=== PATIENT | female | born 1930 | race Caucasian/White ===

== ENCOUNTER 2018-10-13 02:02 | Inpatient (IN) | payer MEDICARE ==
[2018-10-13] MEDS ORDERED: Fentanyl 100 MCG/2 ML VIAL ONE (02:17)
[2018-10-13] MEDS ORDERED: Ondansetron PF 4 MG/2 ML Vial ONE (03:07)
[2018-10-13] MEDS ORDERED: Morphine 4 MG/ML VIAL ONE (03:07)
[2018-10-13 03:23] LABS: #Lymphocytes 2.4 thou/uL (1.20-3.40); #Monocytes 0.5 thou/uL (0.11-0.59); #Neutrophils 9.2 thou/uL (1.40-6.50); %Basophils 0.3 % (0.0-1.0); %Eosinophils 0.3 % (0.0-10.0); %Lymphocytes 19.3 % (21.0-51.0); %Monocytes 4.4 % (0.0-10.0); %Neutrophils 75.7 % (42.0-75.0); Hemoglobin 11.8 g/dL (12.0-16.0); Mean Corpuscular HGB CONC 32.7 g/dL (32.0-36.0); Mean Corpuscular Hemoglobin 30.6 pg (27.0-31.0); Mean Corpuscular Volume 93.3 fL (78.0-98.0); Mean Platelet Volume 7.6 fL (7.4-10.4); Platelet Count 250 thou/uL (130-400); RBC Distribution Width 13.3 % (11.5-14.5); Red Blood Cell (RBC) Count 3.87 mill/uL (4.20-5.40); White Blood Cell (WBC) Count 12.2 thou/uL (4.8-10.8)
[2018-10-13 03:29] LABS: INR-International Normal Ratio 1.4; Prothrombin Time 17.2 SEC (12.0-14.7)
[2018-10-13 03:30] LABS: PTT 36.4 SEC (22.9-36.1)
[2018-10-13 03:44] LABS: ALT (SGPT) 9 U/L (8-55); AST (SGOT) 15 U/L (5-34); Albumin 3.7 g/dL (3.4-4.8); Alkaline Phosphatase 111 U/L (40-150); Anion Gap 15 mmol/L (10-20); BUN (Urea Nitrogen) 19 mg/dL (9.8-20.1); Bilirubin, Total 0.4 mg/dL (0.2-1.2); CK (CPK) 45 U/L (29-168); Calc. Creatinine Clearance 0 mL/min (70-130); Calcium 9.1 mg/dL (7.8-10.44); Carbon Dioxide 19 mmol/L (23-31); Chloride 105 mmol/L (98-107); Estimated GFR-MDRD 42; Globulin 3.8 g/dL (2.4-3.5); Glucose 138 mg/dL (83-110); Potassium 3.3 mmol/L (3.5-5.1); Protein, Total 7.5 g/dL (6.0-8.3); Sodium 136 mmol/L (136-145)
[2018-10-13] MEDS ORDERED: Dextrose 50% Abboject 50 ML SYRINGE SLOW IVP PRN (05:45)
[2018-10-13] MEDS ORDERED: Morphine 2 MG/ML SYRINGE SLOW IVP PRN (05:45)
[2018-10-13] MEDS ORDERED: Ondansetron ODT 4 MG TAB PO PRN (05:45)
[2018-10-13] MEDS ORDERED: Dextrose 5% in Water 1,000 ML IV PRN (05:45)
[2018-10-13] MEDS ORDERED: Ondansetron PF 4 MG/2 ML Vial IVP PRN (05:45)
[2018-10-13 05:53] VITALS: BMI 28.3
--- NOTE | 2018-10-13 05:54 | HP ---
ATTENDING SURGEON: Eros Darnell MD CONSULTATIONS: Orthopedics, Gonzalo Akins MD HISTORY OF PRESENT ILLNESS: Patient is an 88-year-old woman who resides at home in independent living facility with her , who reportedly tripped over the carpet. After about an hour and a half to 2 hours, she was able to summon help and was brought to the emergency department and underwent evaluation and examination. She was noted to have a right nondisplaced hip fracture, at which time, we were asked to evaluate the patient for admission and obtain orthopedic consultation. The patient denies loss of consciousness or any syncopal type symptoms prior to her fall. ALLERGIES: NONE. CURRENT MEDICATIONS: 1. Eliquis. 2. Fexofenadine. 3. Fluticasone. 4. Furosemide. 5. Levothyroxine. 6. Mirapex. PAST MEDICAL HISTORY: Chronic kidney disease, hypothyroid, hypertension, atrial fibrillation. PAST SURGICAL HISTORY: Appendectomy, colonoscopy, and colon surgery. SOCIAL HISTORY: The patient lives independently at home with spouse. She denies drug, tobacco, or alcohol use. REVIEW OF SYSTEMS: A 10-point review of systems is negative as otherwise stated. PHYSICAL EXAMINATION: VITAL SIGNS: Blood pressure 155/97, heart rate 84, respirations 18, temperature is 97.6, oxygen saturation is 96% on room air. GENERAL: The patient is resting comfortably in bed. She is awake, alert, oriented x3. [place] Coma Scale is 15. HEENT: Head is normocephalic, atraumatic. Eyes; extraocular motion intact. PERRLA bilaterally. Ears are atraumatic without discharge. Nose; atraumatic without discharge. Oropharynx is clear. NECK: Nontender. Trachea is midline. No JVD. CHEST: Clear to auscultation with good inspiratory and expiratory effort. HEART: Regular rate and rhythm. ABDOMEN: Soft, flat, nontender with active bowel sounds. PELVIS: Stable with tenderness to palpation to the right hip consistent with her fracture. EXTREMITIES: Neurovascularly intact x4. Capillary refill is less than 3 seconds. Pulses are 2+. BACK: By report is nontender and atraumatic. LABORATORY RESULTS: White blood cell count 12.2, hemoglobin 11.8, hematocrit 36.1, platelets 250. Sodium 136, potassium 3.3, chloride 105, CO2 of 19, BUN 19, creatinine 1.21, glucose 138. LFTs are unremarkable. PTT 36, PT 17, INR 1.4. CK is 45. RADIOGRAPHIC REPORTS: CT of the brain without contrast shows no acute findings. AP chest x-ray shows no acute cardiopulmonary findings. AP pelvis shows a nondisplaced intertrochanteric femur fracture of the right femur. Radiographs of the right tibia and fibula is showing no acute findings. Views of the right femur did show fracture of the right intertrochanteric femur. Views of the right hip again showed the right intertrochanteric femur fracture. Views of the right knee showed no acute findings. ASSESSMENT: 1. Status post ground level fall. 2. Right intertrochanteric hip fracture. 3. History of atrial fibrillation, on Eliquis. 4. History of hypertension. 5. History of chronic kidney disease. PLAN: Plan will be to admit the patient to the surgical floor. We will hold her Eliquis per discussion with Orthopedics. The patient will be able to eat today and likely undergo her surgical procedure on . The patient will have pain control, pulmonary toilet, gastritis, and mechanical VTE prophylaxis. The evaluation, examination, laboratory, and radiographic findings will be discussed with Dr. Darnell after this dictation. Job ID: [id number]
[2018-10-13] MEDS: traMADol HCl 50 MG TAB PO PRN ×3 (06:35→19:57)
[2018-10-13] MEDS: Cyclobenzaprine 10 MG TAB PO PRN (06:36)
--- NOTE | 2018-10-13 07:23 | CT ---
CT OF THE BRAIN WITHOUT CONTRAST: Date: 10/13/18 INDICATION: History of fall with head injury. COMPARISON: None. FINDINGS: The skull and extracranial soft tissues are within normal limits. There is mucosal thickening with ai r fluid levels present within the maxillary sinuses and sphenoid sinuses, suspicious for acute sinusi tis. Mastoid air cells are clear. There is mild generalized cerebral and cerebellar atrophy. There is mild chronic small vessel white m atter ischemic change. No definite acute infarct, hemorrhage, or hydrocephalus is present. IMPRESSION: 1. No acute intracranial abnormality. 2. Mild generalized cerebral and cerebellar atrophy. 3. Mild chronic small vessel white matter ischemic change. 4. Mucosal thickening of the air fluid levels within the maxillary sinuses and sphenoid sinuses, cinthia picious for underlying sinusitis. Recommend correlation with clinical exam. POS: NORAH
[2018-10-13] MEDS ORDERED: CEFAZOLIN/Water 2 GM/20 ML SYRINGE SLOW IVP SCH (08:15)
--- NOTE | 2018-10-13 08:19 | RAD ---
RIGHT LEG TWO VIEWS: History: Trauma. Right leg pain. FINDINGS/IMPRESSION: The right tibia and fibula are intact. POS: OFF
--- NOTE | 2018-10-13 08:20 | RAD ---
AP PELVIS: History: Trauma, right hip pain. FINDINGS/IMPRESSION: There is a right sided intertrochanteric fracture without significant displacement. POS: OFF
--- NOTE | 2018-10-13 08:20 | RAD ---
RIGHT KNEE FOUR VIEWS: History: Injury, right knee pain. FINDINGS/IMPRESSION: No acute fracture or dislocation is identified. POS: OFF
--- NOTE | 2018-10-13 08:22 | RAD ---
RIGHT HIP TWO VIEWS: History: Trauma. Right hip pain. FINDINGS/IMPRESSION: There is a mildly displaced intertrochanteric fracture involving the right proximal femur. POS: OFF
--- NOTE | 2018-10-13 08:23 | RAD ---
RIGHT FEMUR TWO VIEWS: History: Trauma. Right hip pain. FINDINGS/IMPRESSION: There is an intertrochanteric fracture involving the right femur with mild displacement. POS: OFF
--- NOTE | 2018-10-13 08:36 | RAD ---
PORTABLE CHEST ONE VIEW: 10/13/2018 2:30 a.m. HISTORY: Trauma. Right femur fracture. FINDINGS: The heart size is normal. The aorta is tortuous. The lungs are well expanded with prominent perihil ar and suprahilar interstitial markings, which may be due to infiltrates or vascular congestion. No pneumothoraces, lobar consolidation, or large effusions are seen. There are degenerative changes in the spine. POS: OFF
--- NOTE | 2018-10-13 08:44 | CON ---
DATE OF CONSULTATION: 10/13/2018 REQUESTING PHYSICIAN: Trauma Services. CONSULTING PHYSICIAN: Gonzalo Akins MD REASON FOR CONSULTATION: Right hip fracture. HISTORY OF PRESENT ILLNESS: This is an 88-year-old female, who resides at [facility] with her . She states that she got up last night out of bed and tripped over some loose carpet in her apartment home. Her , who is hard of hearing, did not hear her summoning for help until approximately an hour and a half to 2 hours of her lying on the floor. She was brought to the emergency department at that time, where she was found to have a right intertrochanteric femur fracture. We have been consulted for this reason. The patient denies any head injury or loss of consciousness. She denies any other extremity pain at this time. No numbness or tingling. No previous hip injuries. ALLERGIES: NONE. PAST MEDICAL HISTORY: Significant for chronic kidney disease, hypothyroid, hypertension, atrial fibrillation for which she is on Eliquis. PAST SURGICAL HISTORY: Appendectomy, colonoscopy, and colon surgery. SOCIAL HISTORY: The patient is an independent walker. She does not utilize any walkers or canes at home. She does live with her spouse. She denies any drug use, tobacco use, or alcohol use. FAMILY HISTORY: Reviewed and noncontributory. REVIEW OF SYSTEMS: Ten-point review of systems conducted and otherwise negative except for stated above. PHYSICAL EXAMINATION: VITAL SIGNS: Temperature 97.7, pulse rate of 82, respiratory rate of 18, oxygen saturation of 96% on room air, and blood pressure of 166/78. GENERAL: The patient is awake and alert. She is very pleasant and cooperative with exam findings today. Currently, no family is at bedside. HEENT: Head is normocephalic and atraumatic. NECK: Supple. Trachea midline. LUNGS: Breathing is nonlabored. EXTREMITIES: Lower extremities were evaluated. There is no significant shortening or external rotation. The patient is able to move both feet. She is able to wiggle all toes on both sides. Neurovascular status is intact bilaterally. Right hip is evaluated. No signs for open wounds or significant ecchymosis at this time. Remainder of extremity exam is unremarkable. RADIOGRAPHIC FINDINGS: Radiographic findings including views of the right hip show evidence for a nondisplaced right intertrochanteric femur fracture. These films were reviewed with Dr. Akins as well as myself. PLAN: The patient is currently on Eliquis for atrial fibrillation. We would like to go forward with surgery tomorrow while Eliquis is being held today. We have discussed surgical intervention with the patient, so that she may restore the function of her right hip and be able to ambulate. She is amenable to go forward with this. Risks, benefits, and alternatives of surgery were discussed at length with the patient, which include, but are not limited to, bleeding, infection, and neurovascular injury. She is amenable to this plan of care. We will plan for surgery tomorrow for a right intertrochanteric nail to the intertrochanteric femur fracture. Postoperatively, we will plan for rehab or group home. Job ID: [id number]
[2018-10-13] MEDS ORDERED: CEFAZOLIN 2 GM/50 ML-DEXTROSE 2 GM in Premix Bag 1 BAG IVPB SCH (08:45)
[2018-10-13] MEDS: Famotidine 20 MG TAB PO SCH (08:49)
[2018-10-13] MEDS ORDERED: Morphine 4 MG/ML VIAL SLOW IVP PRN (10:45)
--- NOTE | 2018-10-13 13:51 | PRG ---
DATE OF SERVICE: 10/13/2018 SUBJECTIVE: Please see Zeb Gilman's full H and P for details. The patient is seen and examined, hemodynamically stable, set for surgery tomorrow, on Eliquis at home, that is going to be held today. Job ID: [id number]
[2018-10-13] MEDS: Acetaminophen 1,000 MG in Premix Bag 1 BAG IVPB SCH (23:49)
[2018-10-14] MEDS: Acetaminophen 1,000 MG in Premix Bag 1 BAG IVPB SCH ×5 (04:33→20:04)
[2018-10-14] MEDS: traMADol HCl 50 MG TAB PO PRN ×2 (04:33→13:36)
[2018-10-14 08:25] LABS: Anion Gap 12 mmol/L (10-20); BUN (Urea Nitrogen) 16 mg/dL (9.8-20.1); Calc. Creatinine Clearance 50 mL/min (70-130); Calcium 8.7 mg/dL (7.8-10.44); Carbon Dioxide 20 mmol/L (23-31); Chloride 107 mmol/L (98-107); Estimated GFR-MDRD 56; Glucose 98 mg/dL (83-110); Potassium 3.9 mmol/L (3.5-5.1); Sodium 135 mmol/L (136-145)
[2018-10-14] MEDS ORDERED: Prevnar 13-Val Conj/PF 0.5 ML SYRINGE IM ONE (09:00)
[2018-10-14] MEDS: Famotidine 20 MG TAB PO SCH (09:47)
[2018-10-14 10:15] LABS: #Eosinphils 0.1 thou/uL (0.0-0.7); #Lymphocytes 1.4 thou/uL (1.20-3.40); #Monocytes 0.7 thou/uL (0.11-0.59); #Neutrophils 6.7 thou/uL (1.40-6.50); %Basophils 0.2 % (0.0-1.0); %Eosinophils 0.7 % (0.0-10.0); %Lymphocytes 15.9 % (21.0-51.0); %Monocytes 7.8 % (0.0-10.0); %Neutrophils 75.4 % (42.0-75.0); Hemoglobin 11.5 g/dL (12.0-16.0); Mean Corpuscular HGB CONC 32.4 g/dL (32.0-36.0); Mean Corpuscular Hemoglobin 30.7 pg (27.0-31.0); Mean Corpuscular Volume 94.7 fL (78.0-98.0); Mean Platelet Volume 7.3 fL (7.4-10.4); Platelet Count 215 thou/uL (130-400); RBC Distribution Width 13.5 % (11.5-14.5); Red Blood Cell (RBC) Count 3.75 mill/uL (4.20-5.40); White Blood Cell (WBC) Count 8.9 thou/uL (4.8-10.8)
[2018-10-14] MEDS ORDERED: Ondansetron HCl/PF 4 MG/2 ML Vial IVP PRN ×2 (14:34→17:41)
[2018-10-14] MEDS ORDERED: CEFAZOLIN 2 GM/50 ML BAG ONE (14:59)
[2018-10-14] MEDS ORDERED: Fentanyl 100 MCG/2 ML VIAL ONE (15:38)
[2018-10-14] MEDS ORDERED: Lidocaine 2% Jelly 5 ML TUBE ONE (15:47)
[2018-10-14] MEDS ORDERED: PROPOFOL 200 MG/20 ML VIAL ONE (17:01)
[2018-10-14] MEDS ORDERED: Sterile Water 10 ML VIAL ONE (17:01)
[2018-10-14] MEDS ORDERED: Dexamethasone 20 MG/5 ML VIAL ONE (17:01)
[2018-10-14] MEDS ORDERED: CEFAZOLIN 1 GM VIAL ONE (17:01)
[2018-10-14] MEDS ORDERED: PHENYLEPHRINE-NS 100 MCG/ML 10 ML SYRINGE ONE (17:01)
[2018-10-14] MEDS ORDERED: Ondansetron PF 4 MG/2 ML Vial ONE (17:01)
[2018-10-14] MEDS ORDERED: Glycopyrrolate 0.2 MG/ML 5 ML SYRINGE ONE (17:01)
[2018-10-14] MEDS ORDERED: Promethazine HCl 25 MG/ML VIAL IM PRN (17:41)
[2018-10-14] MEDS ORDERED: Promethazine HCl 25 MG/ML VIAL SLOW IVP PRN (17:41)
--- NOTE | 2018-10-14 19:29 | PRG ---
DATE OF SERVICE: 10/14/2018 SUBJECTIVE: Ms. Fernandez is planned for the OR today for ORIF of her hip fracture. She states that she had a good night and was ready for the surgery. She has no further stress. Vital signs have remained stable. She has been off her Eliquis. OBJECTIVE: VITAL SIGNS: Temperature is 97.7, blood pressure 116/65, heart rate is 76, respiratory rate is 20, and O2 saturation is 91% on room air. GENERAL: An 88-year-old female lying supine in bed, in no acute distress. HEENT: Normocephalic, atraumatic. NECK: Trachea is midline. No JVD is appreciated. RESPIRATORY: Equal rise and fall. Bilateral breath sounds. Clear to auscultation upper and lower bilaterally. CARDIOVASCULAR: Regular rate and rhythm. ABDOMEN: Soft and nontender. PELVIS: Pain at the right hip. MUSCULOSKELETAL: Moves extremities. Does have sensation distally in the right extremity and strong pulses are noted. LABORATORY DATA: Laboratory data from today; his white blood cell count is 8.9, platelets 215, hemoglobin and hematocrit 11.5 and 35.5 respectively. Chemistry: Sodium is 135, potassium 3.9, chloride is 107, CO2 is 20, creatinine 0.95, glucose is 98, and BUN is 16. ASSESSMENT AND PLAN: 1. Right intertrochanteric hip fracture. 2. Ground level fall. 3. History of atrial fibrillation. 4. History of hypertension. 5. Wczhk-hw-xleaqti kidney disease. PLAN: 1. The patient is planned for the OR today. 2. N.p.o. until OR. We can start gentle fluids until that time. 3. Pain control as needed. 4. OSCAR seemed to resolve. Continue to monitor. 5. We will need rehab screening after operative repair today. The patient seems to be motivated, came back to her baseline. Continue on the supportive care. We will add DVT prophylaxis postoperatively by resuming the patient's Eliquis. 2000 hours, seen on the floor s/p ORIF. Tolerated well, stable. Updated family at bedside. Job ID: [id number] MTDD
[2018-10-14] MEDS: CEFAZOLIN 2 GM/50 ML BAG IVPB SCH (22:07)
--- NOTE | 2018-10-14 23:42 | RAD ---
GROIN LATERAL RIGHT HIP 10/14/18 PROVIDED CLINICAL HISTORY: ORIF. FINDINGS: Comparison 10/13/18. Antegrade intramedullary femoral nail is demonstrated, presumably associated wit h previously described intertrochanteric right proximal femoral fracture was demonstrated on this lisa ge. IMPRESSION: As above. POS: MUNA
--- NOTE | 2018-10-14 23:45 | RAD ---
RIGHT KNEE RADIOGRAPH TWO VIEWS: 10/14/18 PROVIDED CLINICAL HISTORY: Fracture. FINDINGS: Antegrade intramedullary femoral nail with proximal and distal interlocking screws noted transfixing previously described intertrochanteric right proximal femoral fracture. IMPRESSION: As above. POS: MUNA
--- NOTE | 2018-10-15 01:42 | OP ---
DATE OF PROCEDURE: 10/14/2018 PREOPERATIVE DIAGNOSIS: Right subtrochanteric/intertrochanteric femur fracture. POSTOPERATIVE DIAGNOSIS: Right subtrochanteric/intertrochanteric femur fracture. PROCEDURE PERFORMED: TFN nail to right femur. ANESTHESIA: General. IT APPLICATION SUPPORT ANALYST: Quinten. ESTIMATED BLOOD LOSS: 150 mL. IMPLANTS: Synthes TFN 11 x 380 mm nail with 95 mm hip screw. COMPLICATIONS: None. DRAINS: None. SPECIMEN: None. OUTCOME: Near-anatomic alignment. INDICATIONS: The patient is an 88-year-old lady status post ground level fall, sustaining a fracture that begins in the intertrochanteric region, but then extends below the lesser trochanter to the subtrochanteric region of her right proximal femur. After discussion with the patient including risks and benefits, we decided to proceed with TFN stabilization in hopes of allowing her to return to her normal activity level, which includes quite a bit of walking. Informed consent has been obtained. I believe all questions answered. DESCRIPTION OF PROCEDURE: The patient was brought to the operating room and a time-out performed followed by induction of general anesthesia. Next, the patient was positioned supine on the fracture table with the injured extremity held in longitudinal traction and the well leg scissored and padded such that it was out of view for AP and lateral C-arm images of the right hip. Next, a sterile prep and drape were performed of the right lateral thigh. A small proximal incision was made to the greater trochanter. After the skin was sharply incised, dissection was carried down bluntly such that the tip of the greater trochanter could be easily palpated. Next, a threaded guidewire was started at the tip of the greater trochanter and introduced into the proximal femoral canal. This was followed by passage of the opening reamer over this guidewire. Next, a ball-tipped guidewire was passed down the shaft of the femur into the distal femoral metaphysis. Measurement off this guidewire determined that 380 mm nail would be of appropriate length. A 12.5 mm reamer was then passed over this guidewire just to further open the midshaft to the canal. This was followed by introduction of an 11 x 380 mm nail with no difficulty. Once appropriately positioned, a second incision was made distal to the first and the hip screw jig was brought up against the lateral cortex of the femur. A second threaded guidewire was then passed through this jig across the lateral cortex of the femur up into the femoral neck and head. Once appropriately positioned, measurement off the pin was performed and then reaming performed over this pin. Next, a 95 mm hip screw was introduced into the femoral neck and head. Once appropriately positioned, the locking mechanism was engaged and backed off a half turn. Next, all the proximal jig was removed from the nail. Using freehand technique, a single distal cross-lock screw was applied without difficulty. After completion of this, AP and lateral C-arm images were obtained that showed near-anatomic alignment of the fracture and appropriate positioning of the hardware. The 3 small incisions were irrigated with bulb syringe. The 2 proximal incisions were closed in layers with 2-0 Vicryl and chris. The single distal cross-lock screw incision was closed with chris. Xeroform gauze and tape dressing was applied to the thigh and then the patient was transferred to recovery room in stable condition. There were no complications. She tolerated the procedure well. Job ID: [id number]
[2018-10-15] MEDS: Acetaminophen 1,000 MG in Premix Bag 1 BAG IVPB SCH ×2 (01:45→08:20)
[2018-10-15] MEDS: CEFAZOLIN 2 GM/50 ML BAG IVPB SCH (06:03)
[2018-10-15 06:47] LABS: #Lymphocytes 1.2 thou/uL (1.20-3.40); #Monocytes 0.4 thou/uL (0.11-0.59); #Neutrophils 6.6 thou/uL (1.40-6.50); %Basophils 0.2 % (0.0-1.0); %Eosinophils 0.1 % (0.0-10.0); %Lymphocytes 14.3 % (21.0-51.0); %Monocytes 4.4 % (0.0-10.0); Hemoglobin 10.7 g/dL (12.0-16.0); Mean Corpuscular HGB CONC 32.4 g/dL (32.0-36.0); Mean Corpuscular Hemoglobin 30.6 pg (27.0-31.0); Mean Corpuscular Volume 94.4 fL (78.0-98.0); Mean Platelet Volume 7.9 fL (7.4-10.4); Platelet Count 221 thou/uL (130-400); RBC Distribution Width 13.4 % (11.5-14.5); Red Blood Cell (RBC) Count 3.49 mill/uL (4.20-5.40); White Blood Cell (WBC) Count 8.1 thou/uL (4.8-10.8)
[2018-10-15 07:08] LABS: Anion Gap 13 mmol/L (10-20); BUN (Urea Nitrogen) 19 mg/dL (9.8-20.1); Calc. Creatinine Clearance 45 mL/min (70-130); Calcium 8.8 mg/dL (7.8-10.44); Carbon Dioxide 24 mmol/L (23-31); Chloride 106 mmol/L (98-107); Estimated GFR-MDRD 49; Glucose 118 mg/dL (83-110); Potassium 4.5 mmol/L (3.5-5.1); Sodium 138 mmol/L (136-145)
[2018-10-15] MEDS: Famotidine 20 MG TAB PO SCH (08:20)
[2018-10-15] MEDS: traMADol HCl 50 MG TAB PO PRN ×3 (08:20→21:52)
[2018-10-15] MEDS ORDERED: traMADol HCl 50 MG TAB PO SCH ×2 (09:45→18:00)
[2018-10-15] MEDS: Cyclobenzaprine 10 MG TAB PO PRN ×2 (11:58→21:50)
[2018-10-15] MEDS: Acetaminophen 500 MG TAB PO SCH ×2 (13:55→20:29)
[2018-10-15] MEDS: Senokot S 8.6-50 MG TAB PO SCH (20:27)
[2018-10-15] MEDS ORDERED: Enoxaparin Sodium 40 MG/0.4 ML SYRINGE SC SCH (21:45)
[2018-10-15] MEDS: traMADol HCl 50 MG TAB PO SCH (21:51)
--- NOTE | 2018-10-15 21:57 | PRG ---
DATE OF SERVICE: 10/15/2018 SUBJECTIVE: Ms. Fernandez is an 88-year-old female, postop day #1 ORIF of right hip fracture. The patient had no overnight events. Pain is controlled. The patient has been up with physical therapy today. OBJECTIVE: VITAL SIGNS: Temperature 97.4, pulse 82, respirations 20, SpO2 of 97% on room air, and blood pressure 140/82. GENERAL: An 88-year-old female in no distress, lying supine in bed. HEENT: Normocephalic and atraumatic. NECK: Trachea is midline. No JVD. RESPIRATORY: Equal rise and fall, bilateral breath sounds clear to auscultation. CARDIOVASCULAR: Regular rate and rhythm. ABDOMEN: Soft and nontender. PELVIS: Pain to right hip. MUSCULOSKELETAL: Moves all extremities. Positive sensation and pulses distally to right extremity. Positive pulses. LABORATORY DATA: WBC 8.1, RBC 3.49, hemoglobin 10.7, hematocrit 33.0, and platelets 221. Sodium 138, potassium 4.5, chloride 106, CO2 of 24, BUN 19, creatinine 1.05, glucose 118, and calcium 8.8. ASSESSMENT AND PLAN: 1. Right intertrochanteric hip fracture, status post open reduction and internal fixation day #1. 2. Ground-level fall. 3. Acute traumatic pain. 4. History of atrial fibrillation. 5. History of hypertension. 6. Acute on chronic kidney disease. PLAN: We will discontinue the patient's Warner, place the patient on mechanical DVT prophylaxis. We will discuss restarting Eliquis with Ortho. We will place the patient on a bowel regimen. Continue PT and OT. Restart the patient's home medication. Case management for placement. This patient has been discussed with the attending surgeon. Job ID: [id number] MTDD
[2018-10-15] MEDS: cycloSPORINE 0.05% Ophthalmic Droperette EA EYE SCH (22:16)
[2018-10-16] MEDS: Acetaminophen 500 MG TAB PO SCH ×4 (02:06→20:19)
[2018-10-16] MEDS: traMADol HCl 50 MG TAB PO SCH ×4 (05:52→22:45)
[2018-10-16] MEDS: Levothyroxine Sodium 112 MCG TAB PO SCH (05:53)
[2018-10-16] MEDS: Cyclobenzaprine 10 MG TAB PO PRN ×2 (05:53→20:18)
[2018-10-16 06:36] LABS: #Eosinphils 0.1 thou/uL (0.0-0.7); #Lymphocytes 1.9 thou/uL (1.20-3.40); #Monocytes 0.8 thou/uL (0.11-0.59); %Basophils 0.4 % (0.0-1.0); %Eosinophils 0.8 % (0.0-10.0); %Lymphocytes 24.8 % (21.0-51.0); %Monocytes 9.9 % (0.0-10.0); %Neutrophils 64.1 % (42.0-75.0); Hemoglobin 9.8 g/dL (12.0-16.0); Mean Corpuscular HGB CONC 31.8 g/dL (32.0-36.0); Mean Corpuscular Volume 94.3 fL (78.0-98.0); Mean Platelet Volume 7.5 fL (7.4-10.4); Platelet Count 237 thou/uL (130-400); RBC Distribution Width 13.3 % (11.5-14.5); Red Blood Cell (RBC) Count 3.27 mill/uL (4.20-5.40); White Blood Cell (WBC) Count 7.8 thou/uL (4.8-10.8)
[2018-10-16 06:58] LABS: Anion Gap 10 mmol/L (10-20); BUN (Urea Nitrogen) 25 mg/dL (9.8-20.1); Calc. Creatinine Clearance 43 mL/min (70-130); Calcium 8.8 mg/dL (7.8-10.44); Carbon Dioxide 27 mmol/L (23-31); Chloride 104 mmol/L (98-107); Estimated GFR-MDRD 47; Glucose 83 mg/dL (83-110); Magnesium 1.7 mg/dL (1.6-2.6); Phosphorus 2.8 mg/dL (2.3-4.7); Potassium 4.1 mmol/L (3.5-5.1); Sodium 137 mmol/L (136-145)
[2018-10-16] MEDS: Polyethylene Glycol 3350 17 GM Packet PO SCH (09:02)
[2018-10-16] MEDS: Famotidine 20 MG TAB PO SCH (09:02)
[2018-10-16] MEDS: Senokot S 8.6-50 MG TAB PO SCH ×2 (09:03→20:50)
[2018-10-16] MEDS: cycloSPORINE 0.05% Ophthalmic Droperette EA EYE SCH ×2 (09:04→20:50)
[2018-10-16] MEDS: traMADol HCl 50 MG TAB PO PRN ×2 (09:52→16:18)
--- NOTE | 2018-10-16 20:00 | PRG ---
DATE OF SERVICE: 10/16/2018 SUBJECTIVE: 88-year-old female, postop day #2 ORIF of right hip fracture. The patient with no overnight events. The patient is currently sleeping, arousable easily. The patient reports pain is well controlled at this time, but she did not sleep very well last night due to pain. Audible upper airway congestion noted. The patient denies any shortness breath or pedal edema. OBJECTIVE: VITAL SIGNS: Temperature 97.7, pulse 84, respirations 18, blood pressure 134/84, and 97% on room air. GENERAL: Pleasant, elderly female with audible upper airway congestion. Appears in no distress. HEENT: Trachea is midline. There is no JVD. RESPIRATORY: Equal rise and fall of chest. Bilateral breath sounds clear to auscultation. CARDIOVASCULAR: The patient with regular rate and rhythm. No murmurs noted. No pedal edema. ABDOMEN: Soft, nontender. Active bowel sounds. PELVIS: Mild pain to right hip status post ORIF. MUSCULOSKELETAL: Moves all extremities. Positive sensation, pulses distally. No pedal edema. LABORATORY DATA: WBC 7.8, RBC 3.27, hemoglobin 9.8, hematocrit 30.8, and platelets 237. Sodium 137, potassium 4.1, chloride 104, BUN 25, creatinine 1.10, glucose 83, calcium 8.8, phosphorus 2.8, and mag 1.7. ASSESSMENT: 1. Right intertrochanteric hip fracture, status post open reduction and internal fixation, postop day #2. 2. Ground level fall. 3. Acute traumatic pain. 4. History of atrial fibrillation. 5. History of hypertension. PLAN: We will order p.r.n. DuoNebs. We will order a BNP in the morning. We will continue the patient's pain regimen. The patient was restarted on her Eliquis today. Plan is for fpc at [facility] hopefully on Thursday. The patient was discussed with the attending surgeon. Job ID: [id number] [facility]
[2018-10-16] MEDS: Apixaban 2.5 MG TAB PO SCH (20:17)
[2018-10-17] MEDS: Acetaminophen 500 MG TAB PO SCH ×4 (02:10→20:06)
[2018-10-17] MEDS: Cyclobenzaprine 10 MG TAB PO PRN ×2 (05:16→20:02)
[2018-10-17] MEDS: Levothyroxine Sodium 112 MCG TAB PO SCH (05:16)
[2018-10-17] MEDS: traMADol HCl 50 MG TAB PO SCH ×4 (05:17→21:20)
[2018-10-17] MEDS: traMADol HCl 50 MG TAB PO PRN ×2 (05:18→22:48)
[2018-10-17] MEDS: Polyethylene Glycol 3350 17 GM Packet PO SCH (08:36)
[2018-10-17] MEDS: Apixaban 2.5 MG TAB PO SCH ×2 (08:36→20:06)
[2018-10-17] MEDS: Famotidine 20 MG TAB PO SCH (08:36)
[2018-10-17] MEDS: cycloSPORINE 0.05% Ophthalmic Droperette EA EYE SCH ×2 (08:36→21:18)
[2018-10-17] MEDS: Senokot S 8.6-50 MG TAB PO SCH ×2 (08:36→20:03)
--- NOTE | 2018-10-17 16:57 | PRG ---
DATE OF SERVICE: 10/17/2018 SUBJECTIVE: An 88-year-old female, postop day #3 ORIF of the right hip fracture. The patient with no overnight events. The patient reports sleeping very well last night. Reports that her pain is well controlled. Also, reports that the neb treatments have helped. The patient much improved from yesterday with the upper airway congestion. The patient is able to use her incentive spirometer up to 2500. The patient still has not had a bowel movement since admission. The patient is passing gas. OBJECTIVE: VITAL SIGNS: Temperature 97.6, pulse 84, respirations 18, SpO2 of 93% on room air, blood pressure 147/83. GENERAL: The patient is awake, alert, sitting up in bed, appears in no distress. NECK: Trachea is midline. There is no JVD. RESPIRATORY: Equal chest rise and fall. No audible sounds. Bilateral breath sounds equal to auscultation. Symmetrical rise and fall. ABDOMEN: Soft, nontender. Positive active bowel sounds. MUSCULOSKELETAL: Moves all extremities. Positive sensation. Positive pulses distally. No pedal edema. LABORATORY DATA: There are no labs to evaluate today. ASSESSMENT AND PLAN: 1. Right intertrochanteric hip fracture, status post open reduction internal fixation, postoperative day #3. 2. Ground level fall. 3. Acute traumatic pain. 4. History of atrial fibrillation. 5. History of hypertension. We will continue the patient's neb treatments. Continue pain regimen. We will also continue bowel regimen and increase as needed. Pending placement at nursing home home and waiting on approval hoping to be placed on Thursday. The patient has been discussed with the attending surgeon. Job ID: [id number]
[2018-10-17] MEDS ORDERED: Clopidogrel Bisulfate 75 MG TAB ONE (20:05)
[2018-10-18] MEDS: Acetaminophen 500 MG TAB PO SCH ×4 (01:49→20:50)
[2018-10-18] MEDS: Levothyroxine Sodium 112 MCG TAB PO SCH (04:51)
[2018-10-18] MEDS: Cyclobenzaprine 10 MG TAB PO PRN ×2 (04:51→11:18)
[2018-10-18] MEDS: traMADol HCl 50 MG TAB PO SCH ×4 (04:52→21:42)
[2018-10-18] MEDS: Apixaban 2.5 MG TAB PO SCH ×2 (08:39→20:50)
[2018-10-18] MEDS: Senokot S 8.6-50 MG TAB PO SCH ×2 (08:39→20:50)
[2018-10-18] MEDS: Famotidine 20 MG TAB PO SCH (08:39)
[2018-10-18] MEDS: cycloSPORINE 0.05% Ophthalmic Droperette EA EYE SCH ×2 (08:40→20:51)
[2018-10-18] MEDS: Polyethylene Glycol 3350 17 GM Packet PO SCH (08:40)
[2018-10-18] MEDS: traMADol HCl 50 MG TAB PO PRN (12:25)
[2018-10-18] MEDS: Ferrous Sulfate 325 MG TAB PO SCH (16:28)
--- NOTE | 2018-10-18 16:28 | PRG ---
DATE OF SERVICE: 10/18/2018 SUBJECTIVE: An 88-year-old female, postop day 4, ORIF right hip. The patient with no overnight events. The patient reports being able to sleep fine. The patient's family is at bedside. Plan of care discussed with the patient's family and patient. The patient's daughter shown in detail of where the fracture was and exactly what was repaired and how. Only complaint, the patient has is chronic back pain currently, otherwise, states her pain is well under control. The patient continues to still need to have a bowel movement. Abdomen is soft. OBJECTIVE: VITAL SIGNS: Temperature 97.6, pulse 90, respirations 12, SpO2 of 94% on room air. Blood pressure 162/73. GENERAL: The patient is awake, alert, in bed, no distress at this time. HEENT: Head is atraumatic. NECK: Trachea is midline. There is no JVD. RESPIRATORY: Equal chest rise and fall. No audible rales or rhonchi. ABDOMEN: Soft, nontender. Active bowel sounds. MUSCULOSKELETAL: Moves all extremities. Positive sensation. No pedal edema. Positive pulses distally. LABORATORY DATA: No labs to evaluate. ASSESSMENT: 1. Right hip fracture status post open reduction and internal fixation, postop day 4. 2. Ground level fall. 3. Acute traumatic pain. 4. History of atrial fibrillation. 5. History of hypertension. PLAN: We will continue the patient on pain regimen and bowel regimen, and will increase bowel regimen as needed as the patient has not had a bowel movement. The patient continues to pending placement for group home. The plan is for [facility] on Thursday approximately. Continue PT, OT. We will place the patient on iron and vitamin C supplement. We will recheck labs, CBC and BMP in the morning. The plan has been discussed with the patient and family. The plan has also been discussed with the attending surgeon. Job ID: [id number]
[2018-10-18] MEDS: Ascorbic Acid 500 mg Chewable Tablet PO SCH (20:50)
[2018-10-19] MEDS: Acetaminophen 500 MG TAB PO SCH ×4 (02:31→20:22)
[2018-10-19] MEDS: traMADol HCl 50 MG TAB PO SCH ×4 (05:23→21:06)
[2018-10-19] MEDS: Levothyroxine Sodium 112 MCG TAB PO SCH (05:23)
[2018-10-19 05:49] LABS: #Eosinphils 0.2 thou/uL (0.0-0.7); #Lymphocytes 1.2 thou/uL (1.20-3.40); #Monocytes 0.6 thou/uL (0.11-0.59); #Neutrophils 4.9 thou/uL (1.40-6.50); %Basophils 0.4 % (0.0-1.0); %Eosinophils 2.4 % (0.0-10.0); %Lymphocytes 17.1 % (21.0-51.0); %Monocytes 8.3 % (0.0-10.0); %Neutrophils 71.8 % (42.0-75.0); Hemoglobin 10.3 g/dL (12.0-16.0); Mean Corpuscular HGB CONC 32.5 g/dL (32.0-36.0); Mean Corpuscular Hemoglobin 30.6 pg (27.0-31.0); Mean Corpuscular Volume 94.1 fL (78.0-98.0); Platelet Count 286 thou/uL (130-400); RBC Distribution Width 13.6 % (11.5-14.5); Red Blood Cell (RBC) Count 3.37 mill/uL (4.20-5.40); White Blood Cell (WBC) Count 6.9 thou/uL (4.8-10.8)
[2018-10-19 06:10] LABS: Anion Gap 13 mmol/L (10-20); BUN (Urea Nitrogen) 16 mg/dL (9.8-20.1); Calc. Creatinine Clearance 55 mL/min (70-130); Calcium 8.9 mg/dL (7.8-10.44); Carbon Dioxide 27 mmol/L (23-31); Chloride 102 mmol/L (98-107); Estimated GFR-MDRD 62; Glucose 91 mg/dL (83-110); Magnesium 1.6 mg/dL (1.6-2.6); Phosphorus 2.6 mg/dL (2.3-4.7); Potassium 3.6 mmol/L (3.5-5.1); Sodium 138 mmol/L (136-145)
[2018-10-19] MEDS: Senokot S 8.6-50 MG TAB PO SCH ×2 (07:10→20:23)
[2018-10-19] MEDS: Polyethylene Glycol 3350 17 GM Packet PO SCH (07:10)
[2018-10-19] MEDS: Famotidine 20 MG TAB PO SCH (07:59)
[2018-10-19] MEDS: Ascorbic Acid 500 mg Chewable Tablet PO SCH ×2 (07:59→20:22)
[2018-10-19] MEDS: Apixaban 2.5 MG TAB PO SCH ×2 (08:00→20:22)
[2018-10-19] MEDS: Ferrous Sulfate 325 MG TAB PO SCH ×2 (08:00→16:12)
[2018-10-19] MEDS: cycloSPORINE 0.05% Ophthalmic Droperette EA EYE SCH ×2 (08:01→21:07)
--- NOTE | 2018-10-19 12:47 | EKG ---
Test Reason : FALL Blood Pressure : / mmHG Vent. Rate : 087 BPM Atrial Rate : 089 BPM P-R Int : 000 ms QRS Dur : 090 ms QT Int : 382 ms P-R-T Axes : 000 056 041 degrees QTc Int : 459 ms Atrial fibrillation with premature ventricular or aberrantly conducted complexes Nonspecific T wave abnormality , probably digitalis effect Abnormal ECG Confirmed by AMBER BONILLA DO ([id number]), online content editor DEBRA SMITH ([id number] on 10/19/2018 12:47:23 PM Referred By: Confirmed By:AMBER BONILLA DO
--- NOTE | 2018-10-19 14:15 | PRG ---
DATE OF SERVICE: 10/19/2018 SUBJECTIVE: The patient remains on the surgical floor. She is postop day #5 status post open reduction and internal fixation of right hip. The patient has been waiting for placement and currently, the plan is for her to go to [facility] tomorrow. The patient has done well overnight. She has been working with physical and occupational therapy, albeit slow, she is making forward progress. States that her pain is controlled, though it is sometimes lacking when she is doing her therapy. She is tolerating a diet and has had a bowel movement. OBJECTIVE: VITAL SIGNS: Temperature is 97.7, heart rate 91, blood pressure 164/82, respirations 15, and oxygen saturation 93% on room air. GENERAL: The patient is resting comfortably in bed. She is awake, alert, oriented, and appropriate. HEENT: Unremarkable. LUNGS: Clear to auscultation with good inspiratory and expiratory effort. HEART: rhythm, likely due to her atrial fibrillation. ABDOMEN: Soft, flat, nontender with active bowel sounds. EXTREMITIES: Neurovascularly intact x4. Postop dressing is clean, dry, and intact. LABORATORY DATA: White blood cell count 6.9, hemoglobin 10.3, hematocrit 31.7, and platelets 286. Sodium 138, potassium 3.6, chloride 102, CO2 of 27, BUN 16, creatinine 0.86, glucose 91, magnesium 1.6, and phosphorus 2.6. There are no radiographs reviewed this morning. ASSESSMENT AND PLAN: 1. Status post fall. 2. Status post open reduction and internal fixation of right hip fracture. 3. Hypomagnesemia. PLAN: Continue supportive care, physical and occupational therapy, and await placement again likely tomorrow. The patient was evaluated and seen with Dr. Rios during round this morning. Job ID: [id number]
[2018-10-19] MEDS: Magnesium Oxide 400 MG TAB PO SCH (20:23)
[2018-10-19] MEDS: Cyclobenzaprine 10 MG TAB PO PRN (21:10)
[2018-10-19] MEDS: traMADol HCl 50 MG TAB PO PRN (22:51)
[2018-10-20] MEDS: Acetaminophen 500 MG TAB PO SCH ×4 (03:10→20:31)
[2018-10-20] MEDS: traMADol HCl 50 MG TAB PO SCH ×4 (03:13→21:29)
[2018-10-20] MEDS: Levothyroxine Sodium 112 MCG TAB PO SCH (05:11)
[2018-10-20] MEDS: Ferrous Sulfate 325 MG TAB PO SCH ×2 (09:55→17:01)
[2018-10-20] MEDS: Magnesium Oxide 400 MG TAB PO SCH ×2 (09:55→20:32)
[2018-10-20] MEDS: Ascorbic Acid 500 mg Chewable Tablet PO SCH ×2 (09:55→20:32)
[2018-10-20] MEDS: Polyethylene Glycol 3350 17 GM Packet PO SCH (09:56)
[2018-10-20] MEDS: Famotidine 20 MG TAB PO SCH (09:56)
[2018-10-20] MEDS: Senokot S 8.6-50 MG TAB PO SCH ×2 (09:56→20:32)
[2018-10-20] MEDS: Apixaban 2.5 MG TAB PO SCH ×2 (09:56→20:32)
[2018-10-20] MEDS: cycloSPORINE 0.05% Ophthalmic Droperette EA EYE SCH ×2 (09:57→21:30)
[2018-10-20] MEDS ORDERED: Simethicone Chewable 80 MG TAB PO PRN (13:51)
--- NOTE | 2018-10-20 15:25 | PRG ---
DATE OF SERVICE: 10/20/2018 SUBJECTIVE: The patient is currently on the surgical floor. She is postop day #6, status post ORIF of her right hip. She has been awaiting placement, and we were in hopes that it would happen today, but we have not heard from insurance and the facility if everything has been accepted. She had no events overnight. She is tolerating a diet. Her bowel function has returned. Her pain is controlled. PHYSICAL EXAMINATION: VITAL SIGNS: Temperature is 97.8, heart rate 92, respirations 14, oxygen saturation 94% on room air, and blood pressure 151/80. GENERAL: The patient is resting comfortably in bed. She is awake, alert, and oriented. She is having breakfast during my examination. LUNGS: Clear to auscultation bilaterally. HEART: Regular rate and rhythm. ABDOMEN: Soft, flat, and nontender. EXTREMITIES: Neurovascularly intact x4. HEENT: Unremarkable. LABORATORY DATA: There are no labs or radiographs to review this morning. ASSESSMENT: 1. Status post fall. 2. Status post open reduction and internal fixation of right hip fracture. PLAN: Plan will be to continue supportive care. Await placement decision and continues Physical and Occupational therapy. Job ID: [id number]
[2018-10-20] MEDS: traMADol HCl 50 MG TAB PO PRN (23:15)
[2018-10-20] MEDS: Cyclobenzaprine 10 MG TAB PO PRN (23:52)
[2018-10-21] MEDS: traMADol HCl 50 MG TAB PO SCH ×3 (03:45→16:34)
[2018-10-21] MEDS: Acetaminophen 500 MG TAB PO SCH ×3 (03:45→13:52)
[2018-10-21] MEDS: Levothyroxine Sodium 112 MCG TAB PO SCH (05:52)
[2018-10-21] MEDS: cycloSPORINE 0.05% Ophthalmic Droperette EA EYE SCH (08:40)
[2018-10-21] MEDS: Magnesium Oxide 400 MG TAB PO SCH (08:41)
[2018-10-21] MEDS: Polyethylene Glycol 3350 17 GM Packet PO SCH (08:41)
[2018-10-21] MEDS: Ferrous Sulfate 325 MG TAB PO SCH ×2 (08:41→16:34)
[2018-10-21] MEDS: Famotidine 20 MG TAB PO SCH (08:41)
[2018-10-21] MEDS: Ascorbic Acid 500 mg Chewable Tablet PO SCH (08:41)
[2018-10-21] MEDS: Apixaban 2.5 MG TAB PO SCH (08:41)
[2018-10-21] MEDS: Senokot S 8.6-50 MG TAB PO SCH (08:41)
[2018-10-21] MEDS: traMADol HCl 50 MG TAB PO PRN (10:27)
[2018-10-21] MEDS: Cyclobenzaprine 10 MG TAB PO PRN (11:48)
[2018-10-21 16:39] VITALS: BP 154/75; TEMP 97.8
--- NOTE | 2018-10-22 05:49 | DIS ---
DATE OF ADMISSION: 10/13/2018 DATE OF DISCHARGE: 10/21/2018 ADMISSION DIAGNOSES: 1. Status post ground level fall. 2. Right intertrochanteric hip fracture. 3. History of atrial fibrillation, on Eliquis. 4. History of hypertension. 5. History of chronic kidney disease. CONSULTATIONS: Orthopedics, Dr. Akins. PROCEDURES: Titanium trochanteric fixation nail to right femur. SUMMARY: The patient is an 88-year-old female, who sustained a ground level fall while at home. She was brought to the emergency department, underwent evaluation and examination and sustained the above injury. Because of her Eliquis use, the patient's surgery was delayed by 24 hours, at which time, she underwent her above procedure and tolerated it well. The patient started working with Physical and Occupational Therapy. Due to the weekend and the holidays, the patient had an extended stay here, but at the time of discharge, the patient was progressing with Physical and Occupational Therapy. She was tolerating a diet. Her bowel function had returned. Her pain was controlled. She will follow up with Dr. Akins in 2 weeks or sooner as needed. The patient may follow up with the [facility] as needed. The patient was resumed on her Eliquis, postop day #2. Job ID: [id number]
== END 2018-10-21 17:24 | DRG 481 ==
LOC: ERS 02:02 → SURG B 04:44
PROVIDERS: ADMIT Specialist; ATTEND Specialist
PROC: 0QS604Z Reposition Right Upper Femur with Internal Fixation Device, Open Approach (ICD-10-PCS; principal; 2018-10-14)
DX: S72.144A Nondisplaced intertrochanteric fracture of right femur, initial encounter for closed fracture (principal); N17.9 Acute kidney failure, unspecified; S72.24XA Nondisplaced subtrochanteric fracture of right femur, initial encounter for closed fracture; W01.0XXA Fall on same level from slipping, tripping and stumbling without subsequent striking against object, initial encounter; Y92.009 Unspecified place in unspecified non-institutional (private) residence as the place of occurrence of the external cause; I12.9 Hypertensive chronic kidney disease with stage 1 through stage 4 chronic kidney disease, or unspecified chronic kidney disease; N18.9 Chronic kidney disease, unspecified; E03.9 Hypothyroidism, unspecified; I48.91 Unspecified atrial fibrillation; E83.42 Hypomagnesemia
CPT/HCPCS: 36415; 36416; 70450; 71045; 72170; 76001; 80048; 80053; 82550; 83735; 84100; 85025; 85610; 85730; 90471; 90670; 93005; 94640; 96374; 96375; A4216; C1713; C1769; G0009; G0390; G8978-GP-CM; G8979-GP-CK; G8987-GO-CM; G8988-GO-CK; J0131; J0690; J1100; J1650; J2270; J2405; J2704; J3010; J7620